=== PATIENT | female | born 1995 | race Caucasian/White ===

== ENCOUNTER → 2018-03-10 06:49 | Emergency (ER) | payer MEDICAID ==
[2018-03-10 07:04] VITALS: BP 111/67
--- NOTE | 2018-03-10 07:31 | ED ---
- History of Current Complaint Chief Complaint: EDOBProblems Stated Complaint: OB PROBLEM Hx Obtained From: Patient, EMS Chief Complaint: Other: - unable to pass placenta Onset/Duration: Started Hours Ago Pain Intensity: 0 Location of Pain: None Character: None Associated Signs and Symptoms: Positive: Negative - Assessment Hx : 1 SAB: 0 IEA: 0 - Additional Pertinent History Maternal Blood Type and Rh: AB Positive - Allergies/Home Medications Allergies/Adverse Reactions: Allergies Allergy/AdvReac Type Severity Reaction Status Date / Time No Known Allergies Allergy Verified 03/09/18 15:14 PMH/Surg Hx/FS Hx/Imm Hx Endocrine/Hematology History: Denies: Hx Diabetes Cardiovascular History: Denies: Hx Congestive Heart Failure EENT History: Denies: Hx Deafness Infectious Disease History: No Infectious Disease History: Denies: Traveled Outside the [place] in Last 30 Days - Family History Known Family History: Negative: Renal Disease - Social History Alcohol Use: None Hx Substance Use: No Substance Use Type: Reports: None Hx Tobacco Use: Yes Smoking Status (MU): Former Smoker Review of Systems Negative: Fever, Chills Negative: Erythema Negative: Sore Throat Negative: Chest Pain Negative: Shortness Of Breath, Cough Negative: Abdominal Pain, Vomiting, Nausea Negative: dysuria, hematuria Negative: Myalgia, Edema Negative: Rash Neurological: Negative - dizziness All Other Systems Reviewed And Are Negative: Yes Physical Exam - Physical Exam Triage Information Reviewed: Yes Vital Signs Reviewed: Yes Diagnostics - Vital Signs Vital Signs Temp Pulse Resp BP Pulse Ox 03/10/18 06:55 98 F 91 18 111/67 99 - Laboratory Lab Statement: Any lab studies that have been ordered have been reviewed, and results considered in the medical decision making process. Discharge - Discharge Plan Referrals: No Primary Care Phys,NOPCP [Primary Care Provider] -
== END | disposition home or self-care (01) ==
LOC: ED 06:49
DX: Z53.21 Procedure and treatment not carried out due to patient leaving prior to being seen by health care provider (principal)
CPT/HCPCS: 99282

== ENCOUNTER 2018-03-10 07:18 | Inpatient (IN) | payer MEDICAID ==
[~2018-03-10 07:18] MED LIST: Oxytocin in LR* 20 UNITS/1,000 ML BAG IVPB ONE
[2018-03-10 08:22] LABS: ABS Basophils 0 10^3/ul (0-0.2); ABS Eosinophils 0 10^3/ul (0-0.6); ABS Lymphocytes 1.2 10^3/ul (1.0-4.8); ABS Monocytes 0.7 10^3/ul (0-0.8); ABS Neutrophils 19.5 10^3/ul (1.5-7.7); ABS Nucleated RBC 0 10^3/ul; Eosinophil % 0 % (0-6); Hematocrit 26 % (35-47); Hemoglobin 8.2 g/dl (12.0-16.0); Lymphocyte % 5.6 % (25-47); Mean Corpuscular HGB Conc 32 g/dl (31-36); Mean Corpuscular Hemoglobin 24 pg (27-31); Mean Corpuscular Volume 76 fL (80-97); Mean Platelet Volume 9.7 um3 (7.4-10.4); Nucleated Red Blood Cells % 0; Platelet Count 215 10^3/ul (150-450); Red Blood Count 3.39 10^6/ul (4.00-5.40); Red Cell Distribution Width 15 % (10.5-15); White Blood Count 21.4 10^3/ul (3.5-10.8)
[2018-03-10] MEDS ORDERED: Witch Hazel PAD* JAR TOPICAL PRN (09:07)
[2018-03-10] MEDS ORDERED: Glycerin ADULT SUPP PR PRN (09:07)
[2018-03-10] MEDS ORDERED: Acetaminophen TAB* 325 MG PO PRN (09:07)
[2018-03-10] MEDS ORDERED: Dibucaine 1% 28.35 GM TUBE PR PRN (09:07)
[2018-03-10] MEDS: fentaNYL* 50 MCG/ML 2 ML VIAL (100 MCG VIAL) ONE ×3 (09:25→09:30)
[2018-03-10] MEDS ORDERED: fentaNYL* 50 MCG/ML 2 ML VIAL (100 MCG VIAL) IV SLOW PU ONE (09:48)
[2018-03-10] MEDS: Ibuprofen TAB* 600 MG PO PRN ×2 (10:15→17:39)
--- NOTE | 2018-03-10 10:15 | HP ---
General Information - Reason for Visit Pt arrives s/p unattended home delivery @2:37 with retained placenta. She had care in [place] until about 30wks when she moved here. She says they tried to call several offices in [place] and were unable to get appts. They eventually got an appt at [place] for yesterday and set one up in [place] for Thu just in case. She underwent ROM at 6am yesterday and proceeded with contractions. She came into [facility] birth[facility] yesterday afternoon but says that the ctxs started spacing out and she didn't feel connected with the Ob so she decided to go back home. On the way home the ctxs increased again. She says she started pushing sometime after midnight and delivered the baby at 2:37 with her mom's assistance, who she says is a caddymaster. They claim that there was not that much bleeding at home. She was not bleeding significantly on arrival. - General Information Maternal Age: 22 Grav: 1 Para: 0 SAB: 0 IEA: 0 Estimated Due Date: 03/21/18 Determined By: LMP Maternal Blood Type and Rh: AB Positive - Results this Serology/RPR Result: Non-Reactive Rubella Result: Immune HBsAg Result: Negative HIV Result: Negative Past Medical History Pertinent Past Medical History: Non-Contributory Pertinent Past Surgical History: None Pertinent Family History: Non-Contributory - Antepartal Records Antepartal Records: Reviewed, Uncomplicated Review of Systems Constitutional: Comfortable CV Complaint: No Respiratory: Shortness of Breath: No Gastrointestinal: No Nausea/Vomiting, Normal Bowel Movement Musculoskeletal: No Complaint Movement: Normal Exam Allergies/Adverse Reactions: Allergies No Known Allergies Allergy (Verified 03/10/18 08:35) Vital Signs 03/10/18 03/10/18 03/10/18 09:25 09:27 09:30 Respiratory 18 18 20 Rate Lab Values - Entire Visit: Laboratory Tests 03/10/18 03/10/18 07:50 07:50 WBC 21.4 H RBC 3.39 L Hgb 8.2 L Hct 26 L MCV 76 L MCH 24 L MCHC 32 RDW 15 Plt Count 215 MPV 9.7 Neut % (Auto) 91.1 H Lymph % (Auto) 5.6 L [place] % (Auto) 3.2 Eos % (Auto) 0 Baso % (Auto) 0.1 Absolute Neuts (auto) 19.5 H Absolute Lymphs (auto) 1.2 Absolute Monos (auto) 0.7 Absolute Eos (auto) 0 Absolute Basos (auto) 0 Absolute Nucleated RBC 0 Nucleated RBC % 0 Blood Type AB Positive Antibody Screen Negative - Measurements Height: 5 ft 8 in Pre- Weight: 115 lb - Exam Extremities: No Edema Heart: Normal Rhythm/Heart Sounds HEENT: No Significant Findings - Abdominal Exam Abdomen Exam Comment: Fundus firm Assessment/Plan - Assessment 7hrs s/p unattended home delivery with retained placenta. Hemodynamically stable. After arriving here she initially did not want intervention but with further discussion with only the pt and FOB they agreed to manual removal of the placenta. She tried with NO without significant relief and then used fentanyl IV. The cervix had already closed to about 5cm but pt strongly desired continued effort to manually remove the placenta without proceeding to the OR. With extra effort the uterus was entered and the placenta was easily removed. It was ratty appearing but did appear to be intact. There was minimal bleeding aftewards and fundus was firm. Pt agreed to abx. - Obstetrical Risk Factors Obstetrical Risk Factors: GBS Unknown Risk Factors Comment: Incomplete care Unattended home delivery Retained placenta - Plan Plan: Antibiotic Prophylaxis Plan Comment: Routine post- care. Repeat CBC in am
[2018-03-10] MEDS ORDERED: ceFAZolin 2 GM PREMIX (*) 2 GM/50 ML BAG IVPB ONE (11:26)
[2018-03-10] MEDS: Docusate CAP* 100 MG PO SCH (20:03)
[2018-03-10] MEDS: Simethicone TAB* 80 MG TAB.CHEW PO SCH (20:03)
[2018-03-11 06:40] LABS: ABS Basophils 0 10^3/ul (0-0.2); ABS Eosinophils 0.3 10^3/ul (0-0.6); ABS Lymphocytes 2.1 10^3/ul (1.0-4.8); ABS Monocytes 0.8 10^3/ul (0-0.8); ABS Neutrophils 12.7 10^3/ul (1.5-7.7); ABS Nucleated RBC 0 10^3/ul; Eosinophil % 1.8 % (0-6); Hematocrit 20 % (35-47); Hemoglobin 6.5 g/dl (12.0-16.0); Lymphocyte % 13.3 % (25-47); Mean Corpuscular HGB Conc 33 g/dl (31-36); Mean Corpuscular Hemoglobin 25 pg (27-31); Mean Corpuscular Volume 75 fL (80-97); Mean Platelet Volume 9.2 um3 (7.4-10.4); Nucleated Red Blood Cells % 0; Platelet Count 143 10^3/ul (150-450); Red Blood Count 2.65 10^6/ul (4.00-5.40); Red Cell Distribution Width 16 % (10.5-15)
[2018-03-11] MEDS: Docusate CAP* 100 MG PO SCH ×3 (08:34→21:47)
[2018-03-11] MEDS: Ibuprofen TAB* 600 MG PO PRN ×3 (08:36→21:46)
[2018-03-11] MEDS: Ferrous Gluconate TAB* 324 MG TAB PO SCH (08:36)
[2018-03-12 07:42] VITALS: BP 119/73
[2018-03-12] MEDS: Docusate CAP* 100 MG PO SCH ×2 (09:04→10:41)
[2018-03-12] MEDS: Ferrous Gluconate TAB* 324 MG TAB PO SCH ×2 (09:04→10:42)
[2018-03-12] MEDS: Simethicone TAB* 80 MG TAB.CHEW PO SCH ×2 (09:05→10:51)
== END 2018-03-12 12:25 | disposition home or self-care (01) | DRG 544 ==
LOC: MCHOBOUT 07:18 → MCHOB 07:46
PROVIDERS: ADMIT Obstetrics & Gynecology; ATTEND Obstetrics & Gynecology
PROC: 10D17Z9 Manual Extraction of Products of Conception, Retained, Via Natural or Artificial Opening (ICD-10-PCS; principal; 2018-03-10)
DX: O72.2 Delayed and secondary postpartum hemorrhage (principal); O90.81 Anemia of the puerperium
CPT/HCPCS: 36415; 85025; 86850; 86900; 86901; 88307; A9270-GY; J0690; J3010

== ENCOUNTER 2019-11-30 22:30 | Inpatient (IN) | payer OTHER ==
[2019-11-30] MEDS ORDERED: Buffered Lidocaine 1% SYRIN* 1 ML/SYRINGE INTRADERM ONE (23:12)
[2019-11-30] MEDS ORDERED: Lactated Ringers 1000 ML Bag* 1,000 ML IV ONE (23:12)
--- NOTE | 2019-11-30 23:38 | HP ---
General Information - Reason for Visit contractions - General Information Maternal Age: 23 Grav: 2 Para: 1 SAB: 0 IEA: 0 Estimated Due Date: 12/10/19 Determined By: LMP Maternal Blood Type and Rh: AB Positive - Results this Serology/RPR Result: Non-Reactive Rubella Result: Immune HBsAg Result: Negative HIV Result: Negative GBS Culture Result: Negative Past Medical History Delivery History: See Records Pertinent Past Medical History: See Records Pertinent Past Surgical History: See Records Pertinent Family History: See Records - Antepartal Records Antepartal Records: Reviewed, Complicated by: - THC use/ late entry to care Review of Systems Constitutional: Uncomfortable Gastrointestinal: No Nausea/Vomiting Genitourinary: Leaking Fluid, No Dysuria, No Bleeding Musculoskeletal: Contractions Neurological: No Headache Movement: Normal Exam Allergies/Adverse Reactions: Allergies No Known Allergies Allergy (Verified 11/30/19 23:16) Lab Values - Entire Visit: Laboratory Tests 11/30/19 22:54 Vag Amniotic Fld Detect Positive - Measurements Height: 5 ft 7 in Weight: 157 lb Weight in lbs: [id number] Body Mass Index (BMI): 24.5 Pre- Weight: 149 lb Weight Gained This : 8 lbs and 0 ozs - Exam Breast: Breast Exam Deferred CVA: No CVA Tenderness Extremities: No Edema Heart: Normal Rhythm/Heart Sounds HEENT: No Significant Findings Lungs: Clear Bilaterally Rectal: Rectal Exam Deferred Reflexes: DTR 2+ Thyroid: No Thyromegaly - Abdominal Exam Abdomen Exam: Non-Tender - Ultrasound/Biophysical Profile Ultrasound Status: Not Done Targeted Exam Findings Cervical Exam: 9cm Effacement: Complete Station: 0 Presenting Part: Vertex Membrane Status: Leaking EFM Findings - External Monitor Findings Baseline Heart Rate: 140 External Monitor Findings: Accelerations Present, No Pattern of Variable or Late Decelerations, Variability Moderate Contractions: Regular - Q3' Assessment/Plan - Assessment Pt 23 yo [id number] in active labor. Plan on IV as h/o retained placenta with first - Plan Plan: Admit - Anticipate Vaginal Delivery
[2019-11-30] MEDS ORDERED: Oxytocin in LR* 20 UNITS/1,000 ML BAG IVPB ONE (23:41)
[2019-11-30] MEDS ORDERED: Lactated Ringers 1000 ML Bag* 1,000 ML IV SCH (23:45)
[2019-11-30 23:54] LABS: ABS Eosinophils 0.1 10^3/ul (0-0.6); ABS Neutrophils 12.7 10^3/ul (1.5-7.7); Eosinophil % 0.6 %; Hematocrit 35 % (35-47); Hemoglobin 11.5 g/dL (12.0-16.0); Lymphocyte % 12.8 %; Mean Corpuscular HGB Conc 33 g/dL (31-36); Mean Corpuscular Hemoglobin 25 pg (27-31); Mean Corpuscular Volume 77 fL (80-97); Mean Platelet Volume 9.9 fL (7.4-10.4); Platelet Count 223 10^3/uL (150-450); Red Blood Count 4.54 10^6 /uL (3.70-4.87); Red Cell Distribution Width 15 % (10-15); White Blood Count 15.9 10^3/uL (3.5-10.8)
[2019-12-01 00:06] LABS: Urine Benzodiazepine Screen None Detected (None Detect); Urine Opiates Screen None Detected (None Detect)
[2019-12-01] MEDS ORDERED: Witch Hazel PAD* JAR TOPICAL PRN (00:21)
[2019-12-01] MEDS ORDERED: OXYTOCIN* 10 UNITS/ML 1 ML VIAL IM ONE (00:21)
[2019-12-01] MEDS ORDERED: Dibucaine 1% 28.35 GM TUBE PR PRN (00:21)
[2019-12-01] MEDS ORDERED: Glycerin ADULT SUPP PR PRN (00:21)
[2019-12-01] MEDS ORDERED: OXYTOCIN* 10 UNITS/ML 1 ML VIAL ONE (00:27)
--- NOTE | 2019-12-01 00:29 | PROCNOTE ---
[facility] OB: Delivery Note - Delivery A Date of : 12/01/19 Time of : 00:10 [place] Sex: Male Weight at : 6 lb 14 oz Score 1 Minute: 7 Score 5 Minutes: 9 Gestational Age in Weeks and Days at Delivery: 38 Weeks and 5 Days Delivery Method: Spontaneous Vaginal Labor: Spontaneous Did Patient attempt ?: N/A, No Previous Amniotic Fluid: Clear Estimated Blood Loss: 300 Anesthesia/Analgesia: None Delivered By: Adrianna Georges - Nursery Level of Nursery: Regular/Bedside - Perineum Perineal Injury: None/Intact Perineal Repair: None - Events Delivery Events of Note: Pitocin Only After Delivery - placenta 3vc/spontaneous/ intact. Cord at shoulder / no nuchal cord/ no meconium
[2019-12-01] MEDS ORDERED: Lactated Ringers 1000 ML Bag* 1,000 ML IV SCH (01:00)
[2019-12-01] MEDS: Acetaminophen TAB* 325 MG PO PRN ×4 (02:34→19:51)
[2019-12-01] MEDS: Ibuprofen TAB* 600 MG PO PRN ×4 (02:36→22:24)
[2019-12-01] MEDS: Docusate CAP* 100 MG PO SCH ×3 (08:09→21:00)
[2019-12-01] MEDS ORDERED: Simethicone TAB* 80 MG TAB.CHEW PO SCH (08:30)
[2019-12-01] MEDS ORDERED: Measles, Mumps,Rubella VACC* 0.5 ML/VIAL SUBCUT ONE (09:00)
[2019-12-02] MEDS: Ibuprofen TAB* 600 MG PO PRN ×2 (05:12→11:41)
[2019-12-02 05:18] LABS: ABS Basophils 0.1 10^3/ul (0-0.2); ABS Eosinophils 0.3 10^3/ul (0-0.6); ABS Lymphocytes 2.2 10^3/ul (1.0-4.8); ABS Monocytes 0.6 10^3/ul (0-0.8); ABS Neutrophils 7.5 10^3/ul (1.5-7.7); Eosinophil % 2.6 %; Hematocrit 34 % (35-47); Hemoglobin 11.2 g/dL (12.0-16.0); Lymphocyte % 20.3 %; Mean Corpuscular HGB Conc 33 g/dL (31-36); Mean Corpuscular Hemoglobin 26 pg (27-31); Mean Corpuscular Volume 78 fL (80-97); Mean Platelet Volume 9.8 fL (7.4-10.4); Platelet Count 185 10^3/uL (150-450); Red Blood Count 4.34 10^6 /uL (3.70-4.87); Red Cell Distribution Width 16 % (10-15); White Blood Count 10.6 10^3/uL (3.5-10.8)
[2019-12-02 08:01] VITALS: BP 119/68
[2019-12-02] MEDS: Acetaminophen TAB* 325 MG PO PRN (08:17)
[2019-12-02] MEDS: Docusate CAP* 100 MG PO SCH (08:17)
[2019-12-02] MEDS ORDERED: Ferrous Gluconate TAB* 324 MG TAB PO SCH (09:00)
[2019-12-02] MEDS ORDERED: Tetan/Diph/Pertus SYR(Tdap)* 0.5 ML SYR(BOOSTRIX) use SYR contains LATEX IM ONE (09:20)
== END 2019-12-02 13:20 | disposition home or self-care (01) | DRG 560 ==
LOC: MCHOBOUT 22:30 → MCHOB 23:00
PROVIDERS: ADMIT Obstetrics & Gynecology; ATTEND Obstetrics & Gynecology
PROC: 10E0XZZ Delivery of Products of Conception, External Approach (ICD-10-PCS; principal; 2019-12-01)
PROC: 4A1HXCZ Monitoring of Products of Conception, Cardiac Rate, External Approach (ICD-10-PCS; 2019-12-01)
DX: O69.89X0 Labor and delivery complicated by other cord complications, not applicable or unspecified (principal); Z37.0 Single live birth; Z3A.38 38 weeks gestation of pregnancy
CPT/HCPCS: 36415; 80307; 84112; 85025; 86850; 86900; 86901; 90707; 90715; A9270-GY; G0480; J2590

== ENCOUNTER 2021-03-08 13:25 | Inpatient (IN) ==
[2021-03-08 14:03] LABS: ABS Eosinophils 0.1 10^3/ul (0-0.6); ABS Lymphocytes 1.1 10^3/ul (1.0-4.8); ABS Monocytes 0.5 10^3/ul (0-0.8); ABS Neutrophils 9.6 10^3/ul (1.5-7.7); Eosinophil % 1.1 %; Hematocrit 39 % (35-47); Hemoglobin 13.2 g/dL (12.0-16.0); Lymphocyte % 9.9 %; Mean Corpuscular HGB Conc 34 g/dL (31-36); Mean Corpuscular Hemoglobin 30 pg (27-31); Mean Corpuscular Volume 90 fL (80-97); Mean Platelet Volume 8.1 fL (7.4-10.4); Platelet Count 231 10^3/uL (150-450); Red Blood Count 4.34 10^6 /uL (3.70-4.87); Red Cell Distribution Width 14 % (10-15); White Blood Count 11.4 10^3/uL (3.5-10.8)
[2021-03-08 14:20] LABS: ALT 15 U/L (7-52); AST 16 U/L (13-39); Albumin 4.2 g/dL (3.2-5.2); Albumin/Globulin Ratio 1.6 (1-3); Alkaline Phosphatase 43 U/L (35-149); Anion Gap 6 mmol/L (2-11); Blood Urea Nitrogen 8 mg/dL (6-24); CO2 Carbon Dioxide 26 mmol/L (22-32); Chloride 104 mmol/L (101-111); EGFR Non-African American 109.1 (>60); Globulin 2.6 g/dL (2-4); Glucose 106 mg/dL (70-100); Potassium 3.6 mmol/L (3.5-5.0); Sodium 136 mmol/L (135-145); Total Protein 6.8 g/dL (6.4-8.9)
[2021-03-08 14:42] LABS: Acetaminophen < 15 mcg/mL; Alcohol, S < 10 mg/dL (<10); Salicylate < 2.50 mg/dL (<30)
[2021-03-08 14:45] LABS: Urine Appearance Clear; Urine Benzodiazepine Screen None Detected (None Detect); Urine Bilirubin Negative (Negative); Urine Blood Negative (Negative); Urine Cannabinoids Screen Presumptive Positive (None Detect); Urine Color Yellow; Urine Glucose Negative (Negative); Urine Ketones Negative (Negative); Urine Nitrite Negative (Negative); Urine Opiates Screen None Detected (None Detect); Urine Protein Negative (Negative); Urine Specific Gravity 1.018 (1.002-1.030); Urine Urobilinogen Negative (Negative)
[2021-03-09] MEDS: Vitamin THERAPEUTIC TAB PO SCH (09:49)
[2021-03-10] MEDS: Al Hydrox/Mg Hydrox/Simet LIQ 30 ML UDC PO PRN ×2 (03:52→21:46)
[2021-03-10] MEDS: Vitamin THERAPEUTIC TAB PO SCH (09:30)
[2021-03-11] MEDS: Vitamin THERAPEUTIC TAB PO SCH (09:15)
[2021-03-11] MEDS ORDERED: Ondansetron ODT 4 mg TAB 4 MG TAB PO PRN (15:41)
[2021-03-12 08:17] VITALS: BP 128/68
[2021-03-12] MEDS: Vitamin THERAPEUTIC TAB PO SCH (09:03)
== END 2021-03-12 14:00 | disposition home or self-care (01) | DRG 753 ==
LOC: ED 13:25 → BSU 16:49
PROVIDERS: ADMIT Psychiatry & Neurology Psychiatry; ATTEND Psychiatry & Neurology Psychiatry

== ENCOUNTER 2021-07-20 10:15 | Inpatient (IN) ==
[2021-07-20 10:47] LABS: ABS Eosinophils 0.2 10^3/ul (0-0.6); ABS Lymphocytes 1.3 10^3/ul (1.0-4.8); ABS Monocytes 0.6 10^3/ul (0-0.8); ABS Neutrophils 6.6 10^3/ul (1.5-7.7); Eosinophil % 2.7 %; Hematocrit 36 % (35-47); Hemoglobin 12.2 g/dL (12.0-16.0); Lymphocyte % 14.8 %; Mean Corpuscular HGB Conc 34 g/dL (31-36); Mean Corpuscular Hemoglobin 31 pg (27-31); Mean Corpuscular Volume 89 fL (80-97); Mean Platelet Volume 8.9 fL (7.4-10.4); Platelet Count 202 10^3/uL (150-450); Red Blood Count 3.99 10^6 /uL (3.70-4.87); Red Cell Distribution Width 14 % (10-15); White Blood Count 8.9 10^3/uL (3.5-10.8)
[2021-07-20] MEDS ORDERED: Lactated Ringers 1000 ml BAG 1,000 ML IV ONE (11:00)
[2021-07-20] MEDS ORDERED: Buffered Lidocaine 1% SYRIN 1 ml INTRADERM ONE (11:00)
[2021-07-20] MEDS ORDERED: Lactated Ringers 1000 ml BAG 1,000 ML IV SCH (11:00)
[2021-07-20 11:03] LABS: Albumin 3.6 g/dL (3.2-5.2); Albumin/Globulin Ratio 1.2 (1-3); Calcium 8.7 mg/dL (8.6-10.3); Potassium 3.7 mmol/L (3.5-5.0); Total Bilirubin 0.2 mg/dL (0.2-1.0); Total Protein 6.6 g/dL (6.4-8.9); eGFR CKD-EPI 127.7 (>60)
[2021-07-20 11:04] LABS: Urine Benzodiazepine Screen None Detected (None Detect); Urine Cannabinoids Screen Presumptive Positive (None Detect); Urine Opiates Screen None Detected (None Detect)
[2021-07-20 12:09] LABS: Activated Partial Thrombo Time 26.3 seconds (26.0-38.0); INR 0.98 (0.86-1.15)
[2021-07-20] MEDS: Betamethasone 6 mg/ml 5 ml VIAL IM SCH (12:10)
[2021-07-20 12:46] LABS: Rapid COVID-19 Molecular Undetected (Undetected)
[2021-07-21] MEDS: Betamethasone 6 mg/ml 5 ml VIAL IM SCH (12:26)
[2021-07-22 05:59] LABS: Urine Appearance Cloudy; Urine Bilirubin Negative (Negative); Urine Blood 3+ (Negative); Urine Color Yellow; Urine Glucose Negative (Negative); Urine Ketones Negative (Negative); Urine Nitrite Negative (Negative); Urine Protein Negative (Negative); Urine Specific Gravity 1.011 (1.002-1.030); Urine Urobilinogen Negative (Negative)
[2021-07-22 06:03] LABS: Urine Bacteria 1+ (Absent); Urine Red Blood Cell Trace(0-2/hpf) (Absent); Urine Squamous Epithelial Cell Present (Absent); Urine White Blood Cell Trace(0-5/hpf) (Absent)
[2021-07-22 23:09] VITALS: BP 104/58
== END 2021-07-24 15:10 | disposition home or self-care (01) | DRG 566 ==
LOC: MCHOBOUT 10:15 → MCHOB 10:59
PROVIDERS: ADMIT Obstetrics & Gynecology; ATTEND Obstetrics & Gynecology

== ENCOUNTER 2022-10-09 23:32 | Inpatient (IN) ==
[2022-10-09] MEDS ORDERED: Lactated Ringers 1000 ml BAG 1,000 ML IV SCH (23:45)
[2022-10-09] MEDS ORDERED: Penicillin G Potassium IV 3,000,000 UNITS in NS 0.9% 100 ml BAG 100 ML IVPB SCH (23:45)
[2022-10-09] MEDS ORDERED: Nalbuphine 10 MG/ML 1 ML VIAL IV PRN (23:50)
[2022-10-09] MEDS ORDERED: Buffered Lidocaine 1% SYRIN 1 ml INTRADERM ONE (23:50)
[2022-10-09] MEDS ORDERED: Lactated Ringers 1000 ml BAG 1,000 ML IV ONE (23:50)
[2022-10-09] MEDS ORDERED: Penicillin G Potassium IV 5,000,000 UNITS in NS 0.9% 100 ml BAG 100 ML IVPB ONE (23:50)
[2022-10-09] MEDS ORDERED: Promethazine INJ(RESTRICTED) 25 MG/ML 1 ml VIAL IV PRN (23:50)
[2022-10-10] MEDS: Betamethasone 6 mg/ml 5 ml VIAL IM SCH (00:40)
[2022-10-10 00:49] LABS: Urine Benzodiazepine Screen None Detected (None Detect); Urine Cannabinoids Screen Presumptive Positive (None Detect); Urine Opiates Screen None Detected (None Detect)
[2022-10-10 01:11] LABS: ABS Basophils 0.1 10^3/ul (0-0.2); ABS Eosinophils 0.1 10^3/ul (0-0.6); ABS Lymphocytes 1.3 10^3/ul (1.0-4.8); ABS Monocytes 0.6 10^3/ul (0-0.8); ABS Neutrophils 14.2 10^3/ul (1.5-7.7); Eosinophil % 0.4 %; Hematocrit 28 % (35-47); Hemoglobin 8.5 g/dL (12.0-16.0); Lymphocyte % 8.2 %; Mean Corpuscular HGB Conc 31 g/dL (31-36); Mean Corpuscular Hemoglobin 21 pg (27-31); Mean Corpuscular Volume 68 fL (80-97); Mean Platelet Volume 8.7 fL (7.4-10.4); Platelet Count 159 10^3/uL (150-450); Red Cell Distribution Width 18 % (10-15); White Blood Count 16.3 10^3/uL (3.5-10.8)
[2022-10-10] MEDS ORDERED: Lidocaine 1.5% EPI 1:200,000 30 ML SDV ONE (02:25)
[2022-10-10] MEDS ORDERED: OBEPIDURAL (200 ML) 200 ML EPIDURAL ONE (02:25)
[2022-10-10] MEDS ORDERED: Sodium Citrate/Citric Acid LIQ 15 ML UDC PO PRN (02:55)
[2022-10-10] MEDS ORDERED: Phenylephrine 40 mcg/mL 10mL (400mcg) SYRINGE IV PUSH PRN ×2 (02:55)
[2022-10-10] MEDS ORDERED: Lactated Ringers 1000 ml BAG 1,000 ML IV ONE (02:55)
[2022-10-10] MEDS ORDERED: Lactated Ringers 1000 ml BAG 1,000 ML IV SCH ×2 (03:00→06:00)
[2022-10-10] MEDS ORDERED: OBEPIDURAL (200 ML) 200 ML EPIDURAL SCH (03:00)
[2022-10-10] MEDS ORDERED: Morphine PF AMP (0.5MG/ML) 5 MG/10 ML AMP ONE (03:36)
[2022-10-10] MEDS ORDERED: fentaNYL 100 mcg/2 ml 50 MCG/ML VIAL ONE (03:36)
[2022-10-10] MEDS ORDERED: ceFOXitin 2 GM IVPREMIX 2 GM/50 ML BAG ONE (03:59)
[2022-10-10] MEDS ORDERED: Dexamethasone IV 4 MG/ML VIAL 1 ml VIAL ONE (04:09)
[2022-10-10] MEDS ORDERED: Ondansetron 4 mg VIAL 2 MG/ML 2 ml VIAL ONE (04:09)
[2022-10-10] MEDS ORDERED: Penicillin G Potassium IV 3,000,000 UNITS in NS 0.9% 100 ml BAG 100 ML IVPB SCH (04:30)
[2022-10-10] MEDS ORDERED: Phenylephrine 40 mcg/mL 10mL (400mcg) SYRINGE ONE (04:34)
[2022-10-10 05:43] LABS: ABS Lymphocytes 0.6 10^3/ul (1.0-4.8); ABS Neutrophils 18.6 10^3/ul (1.5-7.7); Hematocrit 31 % (35-47); Hemoglobin 9.2 g/dL (12.0-16.0); Lymphocyte % 3.2 %; Mean Corpuscular HGB Conc 30 g/dL (31-36); Mean Corpuscular Hemoglobin 21 pg (27-31); Mean Corpuscular Volume 69 fL (80-97); Mean Platelet Volume 8.8 fL (7.4-10.4); Platelet Count 143 10^3/uL (150-450); Red Blood Count 4.43 10^6 /uL (3.70-4.87); Red Cell Distribution Width 18 % (10-15); White Blood Count 20.3 10^3/uL (3.5-10.8)
[2022-10-10] MEDS ORDERED: Witch Hazel PAD JAR TOPICAL PRN (05:52)
[2022-10-10] MEDS ORDERED: Glycerin ADULT 2.4 gm SUPP PR PRN (05:52)
[2022-10-10] MEDS ORDERED: Dibucaine 1% OINT 28.35 GM TUBE PR PRN (05:52)
[2022-10-10] MEDS ORDERED: Metoclopramide 5 MG/ML VIAL (10 mg) IV PRN (06:33)
[2022-10-10] MEDS ORDERED: Naloxone 0.4 mg VIAL 0.4 mg/ml 1 ml VIAL IV PUSH PRN (06:33)
[2022-10-10] MEDS ORDERED: Ondansetron 4 mg VIAL 2 MG/ML 2 ml VIAL IV PRN (06:33)
[2022-10-10] MEDS ORDERED: Acetaminophen IV 1 GM/100ML 1,000 MG/100 ML BAG IV PRN (06:33)
[2022-10-11] MEDS: Betamethasone 6 mg/ml 5 ml VIAL IM SCH (07:15)
[2022-10-11 08:40] LABS: ABS Lymphocytes 1.5 10^3/ul (1.0-4.8); ABS Monocytes 0.9 10^3/ul (0-0.8); Hematocrit 31 % (35-47); Hemoglobin 9.7 g/dL (12.0-16.0); Lymphocyte % 5.5 %; Mean Corpuscular HGB Conc 32 g/dL (31-36); Mean Corpuscular Hemoglobin 22 pg (27-31); Mean Corpuscular Volume 70 fL (80-97); Mean Platelet Volume 9.3 fL (7.4-10.4); Platelet Count 145 10^3/uL (150-450); Red Blood Count 4.41 10^6 /uL (3.70-4.87); Red Cell Distribution Width 20 % (10-15); White Blood Count 26.4 10^3/uL (3.5-10.8)
[2022-10-12 07:47] VITALS: BP 120/66
== END 2022-10-12 12:54 | disposition home or self-care (01) | DRG 540 ==
LOC: MCHOBOUT 23:32 → MCHOB 10-10 00:15
PROVIDERS: ADMIT Obstetrics & Gynecology; ATTEND Obstetrics & Gynecology

== ENCOUNTER 2024-01-31 12:03 | Inpatient (IN) ==
[2024-01-31 12:43] LABS: ABS Basophils 0.1 10^3/uL (0.0-0.1); ABS Lymphocytes 1.1 10^3/uL (1.0-4.8); ABS Monocytes 0.7 10^3/uL (0.0-0.9); ABS Neutrophils 8.9 10^3/uL (1.5-7.6); ABS Nucleated RBC 0.01 10^3/ul; Eosinophil % 15.7 %; Hematocrit 41.4 % (35-45); Hemoglobin 13.7 g/dL (11.5-14.3); Lymphocyte % 8.3 %; Mean Corpuscular Hemoglobin 27.6 pg (27-33); Mean Corpuscular Volume 83.6 fL (80-97); Mean Platelet Volume 8.5 fL (7.5-11.2); Nucleated Red Blood Cells % 0.1 %/100WBC (0.0-0.8); Platelet Count 291 10^3/uL (150-450); Red Blood Count 4.95 10^6/uL (3.63-4.92); Red Cell Distribution Width 14.2 % (12-17); White Blood Count 12.7 10^3/uL (3.8-11.8)
[2024-01-31 12:49] LABS: Urine Appearance Turbid; Urine Bilirubin Negative (Negative); Urine Blood Negative (Negative); Urine Color Yellow; Urine Glucose Negative (Negative); Urine Ketones Negative (Negative); Urine Nitrite Negative (Negative); Urine Protein 1+ (>=30 mg/dL) (Negative); Urine Specific Gravity 1.016 (1.002-1.030); Urine Urobilinogen Negative (Negative); Urine pH 6.5 (5.0-8.0)
[2024-01-31 13:01] LABS: Urine Bacteria 1+ /HPF (Absent); Urine Red Blood Cell 1+(3-5/hpf) /HPF (0-Trace); Urine Squamous Epithelial Cell Present /HPF (Absent); Urine White Blood Cell Trace(0-5/hpf) /HPF (0-Trace)
[2024-01-31 13:08] LABS: Urine Benzodiazepine Screen None Detected (None Detect); Urine Cannabinoids Screen Presumptive Positive (None Detect); Urine Opiates Screen None Detected (None Detect)
[2024-01-31 13:52] LABS: ALT 17 U/L (7-52); AST 20 U/L (13-39); Acetaminophen < 15 mcg/mL; Albumin 4.6 g/dL (3.2-5.2); Albumin/Globulin Ratio 1.6 (1-3); Alcohol, S < 13 mg/dL (<13); Alkaline Phosphatase 61 U/L (35-149); Anion Gap 8 mmol/L (2-16); Blood Urea Nitrogen 12 mg/dL (6-24); CO2 Carbon Dioxide 29 mmol/L (22-32); Calcium 9.6 mg/dL (8.6-10.3); Chloride 102 mmol/L (101-111); Creatinine, Serum 0.88 mg/dL (0.51-0.95); Globulin 2.9 g/dL (2-4); Glucose 98 mg/dL (70-100); Salicylate < 2.50 mg/dL (<30); Sodium 139 mmol/L (135-145); Total Bilirubin 0.4 mg/dL (0.2-1.0); Total Protein 7.5 g/dL (6.4-8.9); eGFR CKD-EPI 91.7 (>60)
[2024-01-31 14:07] LABS: TSH Ultra Thyroid Stim Horm 1.41 mcIU/mL (0.34-5.60)
[2024-01-31 14:32] LABS: HCG Pregnancy < 0.60 mIU/mL
[2024-02-01] MEDS: CMC:diPHENhydraMINE CREAM 2%(NF) 28 gm TUBE TOPICAL SCH (14:53)
[2024-02-01] MEDS ORDERED: Nicotine GUM 4MG FRUIT FLAVOR PO PRN (16:06)
[2024-02-01] MEDS ORDERED: Clindamycin 1% TOPICAL(NF) TOPICAL SCH (21:00)
[2024-02-02] MEDS: Mupirocin 2% OINT TUBE TOPICAL SCH (06:12)
[2024-02-04 08:23] VITALS: BP 114/72
== END 2024-02-04 12:50 | disposition home or self-care (01) | DRG 752 ==
LOC: ED 12:03 → EDHOLD 13:22 → BSU 14:27
PROVIDERS: ADMIT Psychiatry & Neurology Addiction Psychiatry; ATTEND Psychiatry & Neurology Psychiatry

== ENCOUNTER 2024-06-14 23:15 | Inpatient (IN) ==
[2024-06-15 04:38] LABS: ABS Basophils 0.1 10^3/uL (0.0-0.1); ABS Eosinophils 0.5 10^3/uL (0.0-0.5); ABS Lymphocytes 2.2 10^3/uL (1.0-4.8); ABS Monocytes 1.2 10^3/uL (0.0-0.9); ABS Neutrophils 8.8 10^3/uL (1.5-7.6); Eosinophil % 4.2 %; Hematocrit 37.1 % (35-45); Hemoglobin 11.9 g/dL (11.5-14.3); Lymphocyte % 16.9 %; Mean Corpuscular Hgb Conc 32.1 g/dL (31-36); Mean Platelet Volume 7.8 fL (7.5-11.2); Platelet Count 227 10^3/uL (150-450); Red Blood Count 4.41 10^6/uL (3.63-4.92); Red Cell Distribution Width 15.2 % (12-17); White Blood Count 12.8 10^3/uL (3.8-11.8)
[2024-06-15 05:16] LABS: Urine Appearance Turbid; Urine Bilirubin Negative (Negative); Urine Blood Negative (Negative); Urine Color Light-Yellow; Urine Glucose Negative (Negative); Urine Ketones Negative (Negative); Urine Nitrite 2+ (Negative); Urine Protein Negative (Negative); Urine Specific Gravity 1.026 (1.002-1.030); Urine Urobilinogen Negative (Negative); Urine pH 6.5 (5.0-8.0)
[2024-06-15 05:19] LABS: Urine Benzodiazepine Screen None Detected (None Detect); Urine Cannabinoids Screen None Detected (None Detect); Urine Opiates Screen None Detected (None Detect)
[2024-06-15 05:20] LABS: Urine Bacteria 3+ /HPF (Absent); Urine Red Blood Cell 1+(3-5/hpf) /HPF (0-Trace); Urine Squamous Epithelial Cell Present /HPF (Absent); Urine White Blood Cell 3+(>20/hpf) /HPF (0-Trace)
[2024-06-15 05:32] LABS: ALT 21 U/L (7-52); AST 17 U/L (13-39); Acetaminophen < 15 mcg/mL; Albumin 3.8 g/dL (3.2-5.2); Albumin/Globulin Ratio 1.6 (1-3); Alcohol, S < 13 mg/dL (<13); Alkaline Phosphatase 55 U/L (35-149); Anion Gap 6 mmol/L (2-16); Blood Urea Nitrogen 19 mg/dL (6-24); CO2 Carbon Dioxide 27 mmol/L (22-32); Calcium 8.7 mg/dL (8.6-10.3); Chloride 106 mmol/L (101-111); Creatinine, Serum 0.76 mg/dL (0.51-0.95); Globulin 2.4 g/dL (2-4); Glucose 92 mg/dL (70-100); Potassium 4.1 mmol/L (3.5-5.0); Salicylate < 2.50 mg/dL (<30); Sodium 139 mmol/L (135-145); Total Bilirubin 0.3 mg/dL (0.2-1.0); Total Protein 6.2 g/dL (6.4-8.9); eGFR CKD-EPI 109.4 (>60)
[2024-06-15 05:39] LABS: HCG Pregnancy < 0.60 mIU/mL
[2024-06-15 05:47] LABS: TSH Ultra Thyroid Stim Horm 2.96 mcIU/mL (0.34-5.60)
[2024-06-15] MEDS ORDERED: Al Hydrox/Mg Hydrox/Simet LIQ 30 ML UDC PO PRN (06:47)
[2024-06-15] MEDS: Vitamin THERAPEUTIC TAB PO SCH (11:26)
[2024-06-16 08:35] LABS: HDL Cholesterol 79.6 mg/dL
[2024-06-17 17:11] LABS: Hepatitis B Surface Antigen Nonreactive (Nonreactive)
[2024-06-17 17:16] LABS: Hepatitis A Ab IgM Negative (Negative); Hepatitis B Core IgM Nonreactive (Nonreactive)
[2024-06-17 17:22] LABS: HIV 4th Generation Nonreactive (Nonreactive)
[2024-06-17 17:28] LABS: Hepatitis C Antibody Negative (Negative)
[2024-06-20 13:29] LABS: Chlamydia trachomatis NAA Negative (Negative)
[2024-06-20 14:19] LABS: Neisseria gonorrhoeae (GC) NAA Positive (Negative)
[2024-06-21] MEDS: Lidocaine 1% MPF 5 ML VIAL INJ ONE (11:04)
[2024-06-21] MEDS: cefTRIAXone VIAL 500 MG VIAL IM ONE (11:04)
[2024-06-22] MEDS: Permethrin 1% LOTION 59 ML BTL TOPICAL ONE (14:25)
[2024-06-27] MEDS: OLANZapine IM (NF) 10 MG VIAL IM ONE ×2 (21:21)
[2024-06-28] MEDS: OLANZapine 10 mg TAB*ODT PO ONE (09:14)
[2024-06-30 16:17] LABS: Urine Appearance Clear; Urine Bilirubin Negative (Negative); Urine Blood 2+ (Negative); Urine Color Yellow; Urine Glucose Negative (Negative); Urine Ketones Negative (Negative); Urine Nitrite Negative (Negative); Urine Protein Negative (Negative); Urine Urobilinogen Negative (Negative); Urine pH 6.5 (5.0-8.0)
[2024-06-30 16:19] LABS: Urine Bacteria 1+ /HPF (Absent); Urine Red Blood Cell 3+(>10/hpf) /HPF (0-Trace); Urine Squamous Epithelial Cell Present /HPF (Absent); Urine White Blood Cell 1+(6-10/hpf) /HPF (0-Trace)
[2024-07-01 09:14] LABS: ALT 29 U/L (7-52); AST 26 U/L (13-39); Albumin 4.2 g/dL (3.2-5.2); Albumin/Globulin Ratio 1.5 (1-3); Alkaline Phosphatase 56 U/L (35-149); Anion Gap 8 mmol/L (2-16); Blood Urea Nitrogen 19 mg/dL (6-24); CO2 Carbon Dioxide 31 mmol/L (22-32); Chloride 101 mmol/L (101-111); Creatinine, Serum 0.71 mg/dL (0.51-0.95); Globulin 2.8 g/dL (2-4); Glucose 112 mg/dL (70-100); Potassium 3.9 mmol/L (3.5-5.0); Sodium 140 mmol/L (135-145); Total Bilirubin 0.3 mg/dL (0.2-1.0); eGFR CKD-EPI 118.7 (>60)
[2024-07-01 09:18] LABS: HCG Pregnancy < 0.60 mIU/mL
[2024-07-08] MEDS: Permethrin 1% LOTION 59 ML BTL TOPICAL ONE (20:20)
[2024-07-18] MEDS ORDERED: Hemorrhoidal OINT 1 TUBE PR PRN (15:54)
[2024-07-26 14:00] VITALS: BP 115/78
== END 2024-07-26 14:00 | disposition home or self-care (01) | DRG 753 ==
LOC: ED 23:15 → EDHOLD 06-15 06:34 → BSU 06-15 13:20
PROVIDERS: ADMIT Psychiatry & Neurology Psychiatry; ATTEND Psychiatry & Neurology Psychiatry